=== PATIENT | female | born 1940 | race Caucasian/White ===

== ENCOUNTER → 2020-10-07 | Outpatient (CLI) | payer MEDICARE, OTHER ==
[~2020-10-07] MED LIST: ACIDOPHILUS1 EAC3; BISOPROLOL FUMAR5 MG; CRANBERRY400 MG; LISINOPRIL10 MG; MULTIVITAMINS; NORCO 5-325 TA1 EACH PO; OMEGA-3 + VITA1 EAC1; SYNTHROID112 MCG; VITCB500GO
[2020-10-07 10:53] LABS: CALCIUM 9.2 mg/dL (8.5-10.1); POTASSIUM 4.2 mmol/L (3.5-5.1)
== END ==
LOC: M.LAB 10:14
DX: E87.1 Hypo-osmolality and hyponatremia (principal); I10 Essential (primary) hypertension